=== PATIENT | male | born 1990 | race Caucasian/White ===

== ENCOUNTER 2016-12-06 16:53 | Emergency (ER) | payer OTHER ==
[~2016-12-06] VITALS: Ht 185.4 cm; Wt 73.0 kg
[~2016-12-06 16:53] MED LIST: LORTAB 1010 MG PO; NO HOME MEDS; ULTRAM50 MG PO
[2016-12-06] MEDS ORDERED: CEPHALEXIN500 MG PO (17:49)
[2016-12-06 17:55] VITALS: BP 116/75
== END 2016-12-06 17:59 | disposition home or self-care (01) | DRG 605 ==
LOC: ED 16:53
DX: S60.021A Contusion of right index finger without damage to nail, initial encounter (principal); S60.410A Abrasion of right index finger, initial encounter; W23.1XXA Caught, crushed, jammed, or pinched between stationary objects, initial encounter; Y93.89 Activity, other specified; Y92.810 Car as the place of occurrence of the external cause

== ENCOUNTER 2018-04-16 12:34 | Emergency (ER) | payer OTHER ==
[~2018-04-16] VITALS: Ht 185.4 cm; Wt 72.7 kg
[~2018-04-16 12:34] MED LIST changes: +CEPHALEXIN500 MG PO
[2018-04-16 13:18] LABS: HEMATOCRIT 46.7 % (39.0-50.0); HEMOGLOBIN 15.7 g/dl (14.0-18.0); IMMATURE GRANULOCYTES 0.2 % (0.0-1.0); MEAN CELL VOLUME 100.4 fL CALC (80.0-100.0); MEAN CORPUSCULAR HGB 33.8 pG CALC (26.0-32.0); MEAN CORPUSCULAR HGB CONC 33.6 g/L CALC (32.0-36.0); NEUT# 2.17 thou/uL (1.82-7.42); RED BLOOD COUNT 4.65 mill/uL (4.70-6.10); RED CELL DISTRI WIDTH 13.7 % (11.5-15.5)
[2018-04-16 13:59] LABS: ALBUMIN 3.7 g/dL (3.2-5.0); ALKALINE PHOSPHATASE 68 u/l (38-126); ANION GAP 8 (6-22 (CALC)); BILIRUBIN, TOTAL 0.8 mg/dL (0.0-1.4); BUN 17 mg/dL (9-20); BUN/CREATININE RATIO 23 (12-20 (CALC)); CARBON DIOXIDE 28 mmol/l (22-30); CHLORIDE 107 mmol/l (95-108); CREATININE 0.7 mg/dL (0.7-1.3); GFR > 60 ML/MIN (>=60 (CALC)); GFR FOR AFR.AMER. > 60 ML/MIN (>=60 (CALC)); POTASSIUM 3.8 mmol/l (3.5-5.1); SGOT/AST 83 u/l (17-59); SGPT/ALT 158 u/l (21-72); SODIUM 139 mmol/l (137-146); TOTAL PROTEIN 6.9 g/dL (6.3-8.2)
[2018-04-16 14:32] LABS: COCAINE NEGATIVE (NEGATIVE); METHADONE NEGATIVE (NEGATIVE); TETRAHYDROCANNABIONOL POSITIVE (NEGATIVE)
[2018-04-16 14:33] LABS: BARBITURATES NEGATIVE (NEGATIVE); OXCYCODONE NEGATIVE (NEGATIVE); TRICYLIC ANTIDEPRESSANTS NEGATIVE (NEGATIVE)
[2018-04-16] MEDS ORDERED: NAPROSYN500 MG PO (14:44)
[2018-04-16] MEDS ORDERED: FLEXERIL5 M1 PO (14:44)
[2018-04-16 14:53] VITALS: BP 134/89
== END 2018-04-16 14:53 | disposition home or self-care (01) | DRG 914 ==
LOC: ED 12:34
PROVIDERS: Emergency Medicine
DX: T14.8XXA Other injury of unspecified body region, initial encounter (principal); R51 Headache; M79.601 Pain in right arm; M54.2 Cervicalgia; F17.210 Nicotine dependence, cigarettes, uncomplicated; V43.62XA Car passenger injured in collision with other type car in traffic accident, initial encounter

== ENCOUNTER 2020-03-07 11:30 | Observation (INO) | payer OTHER ==
[~2020-03-07] VITALS: Ht 185.4 cm; Wt 65.5 kg
[2020-03-07] VITALS (13 sets, daily range): BP systolic 106–116; BP diastolic 59–73
[~2020-03-07 11:30] MED LIST changes: +FLEXERIL5 M1 PO; +NAPROSYN500 MG PO
--- NOTE | 2020-03-07 11:30 | NUR ---
PT TO ROOM VIA EMS STRETCHER. PT ALERT BUT DROWSY. PT OPENS EYES WHEN SPOKE TO AND ANSWERS ALL QUESTIONS APPROPRIATLY. MD NOTIFIED OF PT CONDITION.
[2020-03-07 11:52] LABS: HEMATOCRIT 43.4 % (39.0-50.0); HEMOGLOBIN 14.8 g/dl (14.0-18.0); MEAN CELL VOLUME 98.6 fL CALC (80.0-100.0); MEAN CORPUSCULAR HGB 33.6 pG CALC (26.0-32.0); MEAN CORPUSCULAR HGB CONC 34.1 g/dL CAL (32.0-36.0); RED BLOOD COUNT 4.4 mill/uL (4.70-6.10)
--- NOTE | 2020-03-07 12:10 | NUR ---
NOTICEABLE TRACKS TO [employer] ARMS, PT DENIES WANTING TO KILL SELF, STATES JUST WANTED TO GET HIGH. AWAKE AND TALKING, ALERT/ORIENTED X3.
--- NOTE | 2020-03-07 12:20 | NUR ---
SPOKE WITH POISON CONTROL, THEN HANDED PHONE TO BURAK MARINA AND THEY SPOKE ABOUT POSSIBLE THINGS TO DO IF EKG CHANGES. NEW ORDERS RECEIVED AFTER PHONE CALL
[2020-03-07 12:40] LABS: ALBUMIN 4.1 g/dL (3.2-5.0); ALKALINE PHOSPHATASE 73 u/l (38-126); ANION GAP 10 (6-22 (CALC)); BILIRUBIN, TOTAL 0.4 mg/dL (0.0-1.4); BUN 27 mg/dL (9-20); BUN/CREATININE RATIO 36 (12-20 (CALC)); CARBON DIOXIDE 28 mmol/l (22-30); CHLORIDE 103 mmol/l (95-108); CPK 37 u/l (52-200); CREATININE 0.8 mg/dL (0.7-1.3); ETHYL ALCOHOL 16 mg/dl (0-30); GFR > 60 ML/MIN (>=60 (CALC)); GFR FOR AFR.AMER. > 60 ML/MIN (>=60 (CALC)); LIPASE 37 u/l (23-300); POTASSIUM 4.1 mmol/l (3.5-5.1); SGOT/AST 41 u/l (17-59); SODIUM 138 mmol/l (137-146); TOTAL PROTEIN 7.1 g/dL (6.3-8.2)
[2020-03-07 13:10] LABS: URINE BILIRUBIN - DIPSTICK NEGATIVE (NEGATIVE); URINE BLOOD DIPSTICK NEGATIVE (NEGATIVE); URINE CLARITY CLEAR; URINE COLOR YELLOW; URINE GLUCOSE - DIPSTICK NEGATIVE (NEGATIVE); URINE KETONE NEGATIVE (NEGATIVE); URINE LEUK ESTERASE NEGATIVE (Negative); URINE NITRITE - DIPSTICK NEGATIVE (Negative); URINE PH 5.5 (4.5-8.0); URINE PROTEIN - DIPSTICK NEGATIVE (NEG-TRACE); URINE SPECIFIC GRAVITY >=1.030; URINE UROBILINOGEN - DIPSTICK 0.2 E.U./dL (0.2)
[2020-03-07 13:14] LABS: BARBITURATES NEGATIVE (NEGATIVE); COCAINE NEGATIVE (NEGATIVE); METHADONE NEGATIVE (NEGATIVE); OXCYCODONE NEGATIVE (NEGATIVE); TETRAHYDROCANNABIONOL NEGATIVE (NEGATIVE); TRICYLIC ANTIDEPRESSANTS NEGATIVE (NEGATIVE)
--- NOTE | 2020-03-07 13:18 | NUR ---
REPEAT EKG COMPLETED. PT AWAKENS TO VERBAL STIMULI AND DENIES ANY NEEDS. CALL KOHLI WITHIN REACH.
--- NOTE | 2020-03-07 13:39 | NUR ---
VITAL SIGNS STABLE, PT AWAKE TEXTING ON PHONE, ALERT/ANSWERS QUESTIONS APPROPRIATELY.
--- NOTE | 2020-03-07 14:51 | NUR ---
PT RESTING QUIETLY ON STRETCHER, VSS REMAIN STABLE. STILL EASILY AWOKEN. ADVISED OF WAIT TIME FOR ADMISSION
--- NOTE | 2020-03-07 15:09 | NUR ---
REPORT GIVEN TO LESIA IN ICU FOR CONTINUATION OF CARE.
--- NOTE | 2020-03-07 15:30 | NUR ---
PT ARRIVED VIA STRETCHER ACCOMPANIED BY STAFF. HRT MONITOR ON PT. PT ABLE TO AMBULATE FROM STRETCHER TO BED. CONTINUE TO OSBERVE AND MONITOR,
--- NOTE | 2020-03-07 15:30 | NUR ---
PT TAKEN TO FLOOR WITH MONITER.
--- NOTE | 2020-03-07 15:45 | NUR ---
ASSESSMENT IS COMPLETED: IV SITE IS FREE FROM REDNESS OR EDEMA. COVERED AT THE SITE. HR IS REG,PULSES ARE STRONG X4, ABD IS SOFT WITH ACTIVE BS. BREATH SOUNDS ARE CLEAR, BILATERALLY. CONTINUE TO OSBERVE AND MONITOR
--- NOTE | 2020-03-07 15:54 | NUR ---
PT TRANSFERRED FROM ER ON SODIUM BICARBONATE DRIP AT 200 ML/HR. RATE CHANGED TO 125 ML/HR
--- NOTE | 2020-03-07 16:00 | NUR ---
COVERED BOTH SIDE RAILS DUE TO HX OF A SEIZURE. INFORMED PT OF THE REASON. VERBALIZED UNDERSTANDING
--- NOTE | 2020-03-07 18:00 | NUR ---
PT HAS BEEN RESTING WITH EYES CLOSED NO DISTRESS NOTED. ABLE TO AWAKEN VERY EASILY.
--- NOTE | 2020-03-07 20:00 | NUR ---
AWAKE ON ROUNDS. ANSWERS QUESTIONS APPROPRIATELY, SPEECH CLEAR AND APPROPRIATE. FOLLOWS ALL COMMANDS. DENIES ANY PAIN OR DISCOMFORTS. RESP NON-LABORED. LUNGS CLEAR. IV IN LFA, D5W WITH BICARB AT 125 ML/HR AND NS AT 100 ML/HR. MYSQL DBA SHOWS SR, HR 60'S. DISCUSSED PLAN OF CARE. DENIES NEEDS AT THIS TIME. CALL KOHLI IN REACH.
--- NOTE | 2020-03-07 21:00 | NUR ---
WATCHING TV. NO COMPLAINTS VOICED. VSS. TAKING PO FLUSIDS WELL.
--- NOTE | 2020-03-07 22:01 | NUR ---
RESTING QUIETLY IN BED. VSS. SR ON MONITOR.
--- NOTE | 2020-03-07 23:00 | NUR ---
RESTING WITH EYES CLOSED. RESP NON-LABORED.
[2020-03-08] VITALS (10 sets, daily range): BP systolic 104–140; BP diastolic 66–89
--- NOTE | 2020-03-08 00:05 | NUR ---
NO CHANGES TO REPORT. PATIENT ASLEEP.
--- NOTE | 2020-03-08 02:00 | NUR ---
AMBULATES TO WITH STABLE STANCE AND GAIT. VOIDED LARGE AMOUNT CLEAR MODESTO URINE.
--- NOTE | 2020-03-08 04:05 | NUR ---
PATIENT HAS RESTED WITH EYES CLOSED PAST FEW HOURS. RESP NON-LABORED. WHEN AWAKE PATIENT IS CALM AND COOPERATIVE. NS CONTINUES TO INFUSE AT 100 ML/HR. SR ON MONITOR.
--- NOTE | 2020-03-08 06:00 | NUR ---
PATIENT HAS SLEPT FOR LONG INTERVALS. AWAKENS EASILY TO NAME. IV SITE MAINTAINED IN LFA WITH NS CONTINUED AT 100 ML/HR. NO CHANGES TO REPORT.
--- NOTE | 2020-03-08 07:30 | NUR ---
ASSESSMENT IS COMPLETED: IV SITE IS FREE FROM REDNESS OR EDEMA. HR IS REG,PULSES ARE STRONG X4, ABD IS SOFT WITH ACTIVE BS. BREATH SOUNDS ARE CLEAR,BILATERALLY. NO C/O SOB. CLEAR SPEECH THIS AM. HRT MONITOR IN PLACE. CONTINUE TO OSBERVE AND MONITOR.
--- NOTE | 2020-03-08 08:40 | NUR ---
DR MCKEON AND YASHIRA AGUEROPN IN TO VISIT WITH PT.
[2020-03-08] MEDS ORDERED: RISPERDAL0.5 MG PO (08:42)
--- NOTE | 2020-03-08 09:40 | NUR ---
INFORMED PT OF DISCHARGE. INSTRUCTIONS GIVEN AND VERBALIZED UNDERSTANDING. ALSO LITERATURE OF THE DRUGS OF ABUSE. AND COUCILED OF "STAY AWAY FROM DRUGS". VERBALIZED UNDERSTANDING/ Discharge instructions given. Patient verbalizes understanding of same. Discharged in stable condition via Wheelchair to Home with family. All belongings sent with pt.
== END 2020-03-08 09:50 | disposition home or self-care (01) ==
LOC: ED 11:30 → ED-I 13:21 → ED 14:06 → ICU 14:07
PROVIDERS: Emergency Medicine; ADMIT Internal Medicine; ATTEND Internal Medicine
DX: T43.641A Poisoning by ecstasy, accidental (unintentional), initial encounter (principal); T43.621A Poisoning by amphetamines, accidental (unintentional), initial encounter; T51.0X1A Toxic effect of ethanol, accidental (unintentional), initial encounter; R40.0 Somnolence; R94.31 Abnormal electrocardiogram [ECG] [EKG]; F15.10 Other stimulant abuse, uncomplicated; F16.10 Hallucinogen abuse, uncomplicated; F31.9 Bipolar disorder, unspecified; F17.210 Nicotine dependence, cigarettes, uncomplicated
CPT/HCPCS: J1650

== ENCOUNTER 2020-07-10 22:33 | Emergency (ER) | payer OTHER ==
[~2020-07-10] VITALS: Ht 185.4 cm; Wt 75.0 kg
[~2020-07-10 22:33] MED LIST changes: +RISPERDAL0.5 MG PO
[2020-07-10] MEDS ORDERED: STERAPRED DS10 MG PO (22:54)
[2020-07-10 23:17] VITALS: BP 123/83
== END 2020-07-10 23:17 | disposition home or self-care (01) ==
LOC: ED 22:33
DX: L25.9 Unspecified contact dermatitis, unspecified cause (principal); F17.200 Nicotine dependence, unspecified, uncomplicated